=== PATIENT | male | born 1980 | race Caucasian/White ===

== ENCOUNTER 2016-07-25 12:02 | Emergency (ER) | payer OTHER ==
[2016-07-25 12:53] LABS: HEMOGLOBIN 15.2 gm/dl (14.0-17.5); RED BLOOD COUNT 4.87 M/UL (4.20-5.50); WHITE BLOOD COUNT 4.3 K/UL (4.5-11.0)
[2016-07-25 13:14] LABS: BUN/CREATININE RATIO 9 (0-10)
== END 2016-07-25 19:32 | disposition home or self-care (01) ==
LOC: ER1 12:02
PROVIDERS: Emergency Medicine
DX: K62.89 Other specified diseases of anus and rectum (principal); R31.9 Hematuria, unspecified; F17.210 Nicotine dependence, cigarettes, uncomplicated
CPT/HCPCS: 36415; 80053; 81001; 82150; 83690; 85025; 87045; 87046; 89055; 96361; 96365; 96375; 99284; J1335; J2270; J2405; J7050; Q9962